=== PATIENT | female | born 1990 | race Caucasian/White ===

== ENCOUNTER → 2021-06-09 23:16 | Observation (INO) | END | disposition home or self-care (01) | LOC: 1NENULAB | PROVIDERS: ADMIT Obstetrics & Gynecology; ATTEND Obstetrics & Gynecology ==

== ENCOUNTER 2021-06-10 02:57 | Inpatient (IN) ==
[2021-06-10] MEDS ORDERED: Oxytocin 20 units/ LR 1000 mL 20 UNIT/1,000 ML BAG IVC ONE (03:01)
[2021-06-10] MEDS ORDERED: Ondansetron 4 MG/2 ML VIAL IVP PRN (03:26)
[2021-06-10] MEDS ORDERED: Benzocaine/Menthol 56 GM AEROSOL SPRAY TP PRN (04:20)
[2021-06-10] MEDS ORDERED: Lanolin 7 G OINT...G. TP PRN (04:20)
[2021-06-10] MEDS ORDERED: Oxytocin 20 units/ LR 1000 mL 20 UNIT/1,000 ML BAG IVC SCH (04:20)
[2021-06-10] MEDS ORDERED: Ondansetron ODT 4 MG TAB.RAPDIS SL PRN (04:20)
[2021-06-10 04:40] LABS: Basophils % 0.2 %; Eosinophils % 0.2 %; Hematocrit 36.8 % (35.3-44.9); Hemoglobin 12.5 g/dL (11.5-15.4); Immature Granulocytes % 0.5 % (0-4); Lymphocytes # 0.8 K/mcL (0.6-4.6); Lymphocytes % 4.1 %; Mean Corpuscular Volume 88.2 fL (83.0-100.0); Mean Platelet Volume 12.7 fL (9.4-12.4); Monocytes # 0.4 K/mcL (0.0-1.3); Monocytes % 1.9 %; Neutrophils # 18.1 K/mcL (1.6-8.9); Platelet Count 133 K/mcL (140-400); Red Blood Count 4.17 M/mcL (3.82-4.97); Red Cell Distribution Width 13.2 % (11.5-14.5); Segmented Neutrophils % 93.1 %; White Blood Count 19.4 K/mcL (4.3-11.1)
[2021-06-10 04:53] LABS: Alanine Aminotransferase 10 Units/L (7-52); Aspartate Amino Transferase 9 Units/L (13-39); BUN/Creatinine Ratio 25 (6-26); Blood Urea Nitrogen 12 mg/dL (6-20); Lactate Dehydrogenase 158 Units/L (140-271); Uric Acid 3.1 mg/dL (2.3-7.6); eGFR For African Americans > 60 (> 60); eGFR For Non-African Americans > 60 (> 60)
[2021-06-10] MEDS: Ibuprofen 600 MG TABLET PO SCH ×2 (05:52→21:02)
[2021-06-10] MEDS: Acetaminophen 325 MG TABLET PO SCH ×2 (05:53→21:03)
[2021-06-10] MEDS: Prenatal Vit/FA 1 EACH TABLET PO SCH (08:15)
[2021-06-10 11:36] LABS: Influenza A PCR Negative (Negative); Influenza B PCR Negative (Negative); Resp. Syncytial Virus PCR Negative (Negative)
[2021-06-10 11:53] LABS: SARS-CoV-2 by PCR (In House) Negative (Negative)
[2021-06-11] MEDS: Acetaminophen 325 MG TABLET PO SCH (04:40)
[2021-06-11] MEDS: Ibuprofen 600 MG TABLET PO SCH (04:40)
[2021-06-11 05:16] LABS: Immature Granulocytes % 0.5 % (0-4)
[2021-06-11 05:18] LABS: Basophils % 0.2 %; Eosinophils # 0.1 K/mcL (0.0-0.6); Eosinophils % 1.4 %; Hematocrit 30.3 % (35.3-44.9); Hemoglobin 10.3 g/dL (11.5-15.4); Immature Platelets 17.6 % (1.1-6.1); Lymphocytes # 2.4 K/mcL (0.6-4.6); Lymphocytes % 23.8 %; Mean Corpuscular Hemoglobin 30.3 pg (28.0-33.3); Mean Corpuscular Volume 89.1 fL (83.0-100.0); Mean Platelet Volume 13.3 fL (9.4-12.4); Monocytes # 0.5 K/mcL (0.0-1.3); Monocytes % 4.9 %; Neutrophils # 6.9 K/mcL (1.6-8.9); Platelet Count 126 K/mcL (140-400); Red Cell Distribution Width 13.6 % (11.5-14.5); Segmented Neutrophils % 69.2 %
[2021-06-11 06:43] VITALS: BP 130/84; PULSE 98; TEMP 98; O2SAT 97
[2021-06-11] MEDS: Prenatal Vit/FA 1 EACH TABLET PO SCH (08:25)
== END 2021-06-11 11:07 | disposition home or self-care (01) | DRG 561 ==
LOC: 1NENULAB 02:57 → 1NENUOBS 05:55
PROVIDERS: ADMIT Obstetrics & Gynecology; ATTEND Obstetrics & Gynecology